=== PATIENT | male | born 1975 | race Caucasian/White ===

== ENCOUNTER 2017-02-23 12:33 | Emergency (ER) | payer MEDICAID ==
--- NOTE | 2017-02-23 13:16 | Emergency Department Record ---
History of Present Illness - General Chief complaint: Flank Pain Stated complaint: POSS KIDNEY STONE Time Seen by Provider: 02/23/17 13:12 Source: Patient Mode of Arrival: Ambulatory Limitations: No limitations - History of Present Illness Initial comments: The patient is here due to R flank pain for 3 hours that is radiating to the R groin. He has mild nausea but no vomiting. The patient has a long hx of kidney stones and it feels exactly like another one. He has always been able to pass his stones in the past with no surgical intervention. MD Complaint: Other Onset/Timin -: Hour(s) Location: Right flank Radiation: RLQ Severity: Moderate Severity scale (1-10): 10 Quality: Sharp, Stabbing Consistency: Constant Improves with: None Worsens with: None Reports: Urinary retention - Related Data Previous Rx's Medication Instructions Recorded Hydrocodone/Acetaminophen [[place] 1 - 2 each PO .EVERY 4-6 HRS PRN 02/23/17 5-325 Tablet] #20 tablet Ibuprofen [Motrin] 800 mg PO TID PRN #20 tab 02/23/17 Allergies Allergy/AdvReac Type Severity Reaction Status Date / Time No Known Drug Allergies Allergy Verified 02/23/17 13:00 Travel Screening - Travel/Exposure Within Last 30 Days Have you traveled within the last 30 days?: No - Travel/Exposure Within Last Year Have you traveled outside the [place] in the last year?: No - Additonal Travel Details Have you been exposed to anyone with a communicable illness?: No - Travel Symptoms Symptom Screening: None Review of Systems Constitutional: Denies: Chills, Fever Eyes: Denies: Eye discharge ENT: Denies: Congestion Respiratory: Denies: Cough, Dyspnea Past Medical History - SOCIAL HISTORY Smoking Status: Former smoker Alcohol Use: Occasional Drug Use: None - RESPIRATORY Hx Respiratory Disorders: No - CARDIOVASCULAR Hx Cardio Disorders: No - NEURO Hx Neuro Disorders: No - GI Hx GI Disorders: No - Hx Genitourinary Disorders: No - ENDOCRINE Hx Endocrine Disorders: No - MUSCULOSKELETAL Hx Musculoskeletal Disorders: No - PSYCH Hx Psych Problems: No - HEMATOLOGY/ONCOLOGY Hx Hematology/Oncology Disorders: No Family Medical History Any Significant Family History?: No Physical Exam - General General Appearance: Alert, Oriented x3, Cooperative, No acute distress - Head Head exam: Atraumatic, Normocephalic, Normal inspection - Eye Eye exam: Normal appearance, PERRL - Neck Neck exam: Normal inspection, Full ROM. negative: Tenderness - Respiratory Respiratory exam: Normal lung sounds bilaterally. negative: Respiratory distress - Cardiovascular Cardiovascular Exam: Regular rate, Normal rhythm, Normal heart sounds - GI/Abdominal GI/Abdominal exam: Soft, Normal bowel sounds. negative: Distended, Rebound, Rigid, Tenderness - Extremities Extremities exam: Normal inspection, Full ROM, Normal capillary refill. negative: Tenderness - Neurological Neurological exam: Alert, Normal gait. negative: Abnormal gait, Motor sensory deficit - Psychiatric Psychiatric exam: negative: Anxious, Depressed Course Vital Signs 02/23/17 13:01 Temperature 98.1 F Pulse Rate 51 L Respiratory 20 Rate Blood Pressure 134/92 Pulse Ox 99 - Reevaluation(s) Reevaluation #1: The patient is doing much better at this time. His pain is much improved. 02/23/17 14:05 Reevaluation #2: The patient is doing much better at this time. His pain has resolved and he is ready for home. I did refer him to Dr. Lofton for next month. The patient understands the need to return to the ER for any problems. 02/23/17 15:54 Medical Decision Making - Data Complexity MDM Data: Labs Ordered and/or Reviewed, X-Ray Ordered and/or Reviewed - Lab Data Result diagrams: 02/23/17 13:20 02/23/17 13:20 - Radiology Data Radiology results: Report reviewed (CT: Mild R hydro due to a 1-2 mm UVJ stone.) Disposition Disposition: Discharge Clinical Impression: Ureteral stone with hydronephrosis Disposition: Home, Self-Care Condition: (1) Good Instructions: Ureteral Stones (ED) Additional Instructions: Please drink plenty of fluids and take the Motrin and [place] for pain. Please see Dr. Lofton next month in the [facility]. Return to the ER for any increased pain, fever, or vomiting. Prescriptions: Hydrocodone/Acetaminophen [[place] 5-325 Tablet] 1 - 2 each PO .EVERY 4-6 HRS PRN #20 tablet PRN Reason: Pain Ibuprofen [Motrin] 800 mg PO TID PRN #20 tab PRN Reason: Pain Referrals: [facility] [Provider Group] Forms: Patient Portal Access Time of Disposition: 15:56 Quality - Quality Measures Quality Measures: N/A - Blood Pressure Screening View Details: Yes Blood Pressure Classification: Hypertensive Reading Systolic Measurement: 134 Diastolic Measurement: 92 Screening for High Blood Pressure: < Pre-Hypertensive BP, F/U Documented > [ G8950] Pre-Hypertensive Follow-up Interventions: Follow-up with rescreen every year.
[2017-02-23] MEDS ORDERED: 0.9 % SODIUM CHLORIDE 1,000 ML BAG IV ONE (13:18)
[2017-02-23] MEDS ORDERED: ONDANSETRON HCL IV 4 MG/2 ML VIAL IV ONE (13:18)
[2017-02-23] MEDS ORDERED: HYDROMORPHONE HCL 1 MG/ML CPJ IVP ONE (13:18)
[2017-02-23 13:33] LABS: HEMATOCRIT 45.9 % (42.0-52.0); HEMOGLOBIN 15.8 gm/dl (14.0-18.0); MEAN CELL VOLUME 82.9 fl (81-97); MEAN CORPUSCULAR HEMOGLOBIN 28.5 pg (27-33); MEAN CORPUSCULAR HGB CONC 34.4 g/dl (32-36); PLATELET COUNT 294 K/uL (130-400); RED BLOOD COUNT 5.54 M/uL (4.40-5.70); RED CELL DISTRIBUTION WIDTH 13.4 % (11.5-14.5); WHITE BLOOD COUNT W/O DIFF 10.2 K/uL (4.2-12.2)
[2017-02-23 13:46] LABS: ANION GAP 11.1 (7-16); BLOOD UREA NITROGEN 16 mg/dL (9-20); CARBON DIOXIDE 26.9 mmol/L (22-30); CREATININE 1.3 mg/dL (0.66-1.25); EST GLOMERULAR FILTRATION RATE > 60 ml/min; GLUCOSE,RANDOM 132 mg/dL (70-110)
[2017-02-23] MEDS ORDERED: KETOROLAC 30 MG/ML VIAL IVP ONE (15:15)
[2017-02-23 15:31] LABS: URINE APPEARANCE CLEAR; URINE BILIRUBIN NEGATIVE (NEGATIVE); URINE BLOOD SMALL (NEGATIVE); URINE COLOR YELLOW; URINE GLUCOSE (UA) NEGATIVE (NEGATIVE); URINE KETONE NEGATIVE (NEGATIVE); URINE LEUKOCYTE ESTERASE NEGATIVE (NEGATIVE); URINE NITRITE NEGATIVE (NEGATIVE); URINE PROTEIN NEGATIVE (NEGATIVE); URINE UROBILINOGEN 0.2 E.U./dL (0.20 - 1.00)
[2017-02-23 15:42] LABS: URINE BACTERIA FEW; URINE EPITHELIAL CELLS 0 - 2 (FEW); URINE WBC 0 - 2 (0-2/hpf)
--- NOTE | 2017-02-24 08:46 | CT SCAN REPORT ---
EXAM: CT OF THE ABDOMEN AND PELVIS HISTORY: RIGHT LOWER PAIN. TECHNIQUE: CT of the abdomen and pelvis was performed without oral or IV contrast. This limits evaluation of bowel and solid visceral organs. Comparison: Prior CT exam from 01/22/14. FINDINGS: Limited evaluation of the lung bases is unremarkable. The osseous structures are grossly intact. Small hiatal hernia suggested. Limited evaluation of the liver, spleen, adrenal glands, and pancreas is unremarkable. The gallbladder is present. Multiple nonobstructing renal calculi bilaterally. Normal appendix. There is also mild right sided hydronephrosis and hydroureter secondary to a 1-2 mm right UVJ calculus. No gross evidence for bowel obstruction. No free air or free fluid. The urinary bladder is incompletely distended. Occasional sigmoid diverticula. No CT evidence for diverticulitis. Fat containing inguinal hernias bilaterally. Enlargement of the prostate. Correlate with PSA levels. IMPRESSION: 1. MILD RIGHT SIDED HYDRONEPHROSIS AND HYDROURETER SECONDARY TO A 1-2 MM RIGHT UVJ CALCULUS. MULTIPLE OTHER NONOBSTRUCTING RENAL CALCULI BILATERALLY. 2. MULTIPLE OTHER NONEMERGENT FINDINGS, ABOVE. JOB NUMBER: [id number] MTDD
== END 2017-02-23 16:05 | disposition home or self-care (01) ==
LOC: ER 12:33
DX: N13.2 Hydronephrosis with renal and ureteral calculous obstruction (principal); R10.31 Right lower quadrant pain; R11.0 Nausea; Z87.442 Personal history of urinary calculi
CPT/HCPCS: 99284 ×2; 96374; 96375; 96361; 80048; 81001; 85027; 74176; J1885; J2405; J1170; J7030

== ENCOUNTER 2017-07-04 13:12 | Emergency (ER) | payer MEDICAID ==
[2017-07-04] MEDS ORDERED: SODIUM CHLORIDE 0.9% 500 ML IV ONE (13:30)
[2017-07-04] MEDS ORDERED: ONDANSETRON HCL IV 4 MG/2 ML VIAL IV ONE (13:30)
--- NOTE | 2017-07-04 13:32 | Emergency Department Record ---
History of Present Illness - General Chief Complaint: Abdominal Pain Stated Complaint: KIDNEY STONES,LRQ ABDOMINAL PAIN Time Seen by Provider: 07/04/17 13:22 Source: Patient Mode of Arrival: Ambulatory Limitations: No limitations - History of Present Illness Initial Comments: The patient is here due to the acute onset of sharp stabbing RLQ AP about 3 hours ago. He did have an episode of nausea and vomiting. The pain has been getting progressively worse since the onset. The patient has a hx of ureter stones and the pain does feel the same. He denies any recent illnesses. MD Complaint: Flank pain Onset/Timin -: Hour(s) Location: RLQ Radiation: None Quality: Aching, Cramping Consistency: Intermittent Improves With: Nothing Worsens With: Nothing Associated Symptoms: Dysuria, Nausea, Vomiting - Related Data Previous Rx's Medication Instructions Recorded Hydrocodone/Acetaminophen [[place] 1 - 2 each PO .EVERY 4-6 HRS PRN 07/04/17 5-325 Tablet] #20 tablet Ibuprofen [Motrin] 800 mg PO TID PRN #20 tab 07/04/17 Allergies Allergy/AdvReac Type Severity Reaction Status Date / Time No Known Drug Allergies Allergy Verified 02/23/17 13:00 Travel Screening - Travel/Exposure Within Last 30 Days Have you traveled within the last 30 days?: No - Travel/Exposure Within Last Year Have you traveled outside the [place] in the last year?: No - Additonal Travel Details Have you been exposed to anyone with a communicable illness?: No - Travel Symptoms Symptom Screening: None Review of Systems Constitutional: Denies: Chills, Fever Eyes: Denies: Eye discharge ENT: Denies: Congestion Respiratory: Denies: Cough, Dyspnea Past Medical History - SOCIAL HISTORY Smoking Status: Former smoker Alcohol Use: Occasional Drug Use: None - RESPIRATORY Hx Respiratory Disorders: No - CARDIOVASCULAR Hx Cardio Disorders: No - NEURO Hx Neuro Disorders: No - GI Hx GI Disorders: No - Hx Genitourinary Disorders: No - ENDOCRINE Hx Endocrine Disorders: No - MUSCULOSKELETAL Hx Musculoskeletal Disorders: No - PSYCH Hx Psych Problems: No - HEMATOLOGY/ONCOLOGY Hx Hematology/Oncology Disorders: No Family Medical History Any Significant Family History?: No Physical Exam - General General Appearance: Alert, Oriented x3, Cooperative, No acute distress - Head Head exam: Atraumatic, Normocephalic, Normal inspection - Eye Eye exam: Normal appearance, PERRL - Neck Neck exam: Normal inspection, Full ROM. negative: Tenderness - Respiratory Respiratory exam: Normal lung sounds bilaterally. negative: Respiratory distress - Cardiovascular Cardiovascular Exam: Regular rate, Normal rhythm, Normal heart sounds - GI/Abdominal GI/Abdominal exam: Soft, Normal bowel sounds. negative: Tenderness - Extremities Extremities exam: Normal inspection, Full ROM, Normal capillary refill. negative: Tenderness - Neurological Neurological exam: Alert. negative: Motor sensory deficit Course Vital Signs 07/04/17 13:16 Temperature 98.2 F Pulse Rate 84 Respiratory 16 Rate Blood Pressure 150/91 Pulse Ox 100 - Reevaluation(s) Reevaluation #1: The patient is doing very well at this time. His pain has pretty much resolved. There is no nausea, vomiting, or discomfort at this time. 07/04/17 15:03 Reevaluation #2: The patient is doing very well at this time. His pain has resolved and his urine has also cleared up. We did get him an appointment with Dr. Palm in 2 weeks. He is to take the pain medicines as directed and return to the ER if worse. 07/04/17 15:37 Medical Decision Making - Data Complexity MDM Data: X-Ray Ordered and/or Reviewed - Lab Data Result diagrams: 07/04/17 13:36 07/04/17 13:36 - Radiology Data Radiology results: Report reviewed (CT: 3 mm partially obstructing calculus distal third R ureter with mild hydro.) Disposition Disposition: Discharge Clinical Impression: Ureteral calculus, right Disposition: Home, Self-Care Condition: (2) Stable Instructions: Renal Colic (ED) Additional Instructions: Please drink plenty of fluids. Take the Motrin and or [place] for pain. Please see Dr. Lofton as planned on the . Return to the ER for any increased pain, fever, or vomiting. Prescriptions: Hydrocodone/Acetaminophen [[place] 5-325 Tablet] 1 - 2 each PO .EVERY 4-6 HRS PRN #20 tablet PRN Reason: Pain Ibuprofen [Motrin] 800 mg PO TID PRN #20 tab PRN Reason: Pain Referrals: [facility] [Provider Group] Forms: Patient Portal Access Time of Disposition: 15:36 Quality - Quality Measures Quality Measures: N/A - Blood Pressure Screening View Details: Yes Does Patient Have Any of the Following: No Blood Pressure Classification: Pre-Hypertensive BP Reading Systolic Measurement: 133 Diastolic Measurement: 81 Screening for High Blood Pressure: < Pre-Hypertensive BP, F/U Documented > [ G8950] Pre-Hypertensive Follow-up Interventions: Referral to alternative/primary care provider.
[2017-07-04] MEDS ORDERED: MORPHINE SULFATE 5 MG/ML PFS IVP ONE (13:33)
[2017-07-04 13:48] LABS: HEMATOCRIT 46.1 % (42.0-52.0); HEMOGLOBIN 15.7 gm/dl (14.0-18.0); MEAN CELL VOLUME 83.8 fl (81-97); MEAN CORPUSCULAR HEMOGLOBIN 28.5 pg (27-33); MEAN CORPUSCULAR HGB CONC 34.1 g/dl (32-36); MEAN PLATELET VOLUME 8.9 fl (7.4-10.4); PLATELET COUNT 311 K/uL (130-400); RED CELL DISTRIBUTION WIDTH 13.7 % (11.5-14.5); WHITE BLOOD COUNT W/O DIFF 9.1 K/uL (4.2-12.2)
[2017-07-04 14:41] LABS: URINE APPEARANCE CLOUDY; URINE BILIRUBIN NEGATIVE (NEGATIVE); URINE BLOOD LARGE (NEGATIVE); URINE COLOR BROWN; URINE GLUCOSE (UA) NEGATIVE (NEGATIVE); URINE KETONE TRACE (NEGATIVE); URINE LEUKOCYTE ESTERASE NEGATIVE (NEGATIVE); URINE NITRITE NEGATIVE (NEGATIVE); URINE UROBILINOGEN 0.2 E.U./dL (0.20 - 1.00)
[2017-07-04 14:55] LABS: URINE EPITHELIAL CELLS 0 - 2 (FEW); URINE WBC 0 - 2 (0-2/hpf)
[2017-07-04 14:56] LABS: URINE AMORPHOUS SEDIMENT 1+; URINE BACTERIA NONE SEEN
[2017-07-04 15:26] LABS: BLOOD UREA NITROGEN 18 mg/dL (6-20); CREATININE 1.1 mg/dL (0.7-1.2); EST GLOMERULAR FILTRATION RATE > 60 mL/min
[2017-07-04 15:29] LABS: GLUCOSE,RANDOM 145 mg/dL (74-109)
--- NOTE | 2017-07-05 07:50 | CT SCAN REPORT ---
EXAM: ABDOMEN AND PELVIS CT WITHOUT CONTRAST HISTORY: ACUTE RIGHT LOWER QUADRANT FLANK PAIN, DIFFICULTY URINATING. TECHNIQUE: Contiguous axial images from the lung bases to the symphysis pubic were obtained without IV contrast. Comparison: Abdomen and pelvis CT 02/23/17. FINDINGS: The lung bases are clear. The liver and spleen are unremarkable. Mild right hydroureteronephrosis with partially obstructing calculus in the distal third of the right ureter measuring 3 mm. Nonobstructing 2 mm calculus mid right kidney. At least two nonobstructing 1 mm calculi lower pole right kidney. Cluster of three calculi in the lower pole of the left kidney with the largest measuring 2 mm. At least four additional left intrarenal calculi measuring up to 2 mm. The adrenals and pancreas are normal. Dependent gallstones in the gallbladder. The visualized loops of small and large bowel are of normal caliber. Normal appendix. Mild sigmoid colon with diverticulosis. No free intraperitoneal fluid or adenopathy. Small fat containing inguinal hernias. No lytic or blastic osseous lesion. IMPRESSION: 1. MILD RIGHT HYDRONEPHROSIS DUE TO PARTIALLY OBSTRUCTING 3 MM CALCULUS AT THE DISTAL THIRD OF THE RIGHT URETER. 2. ADDITIONAL NONOBSTRUCTING INTRARENAL CALCULI. 3. NORMAL APPENDIX. 4. MILD COLONIC DIVERTICULOSIS. 5. SMALL FAT CONTAINING INGUINAL HERNIAS. JOB NUMBER: [id number] [facility]
== END 2017-07-04 15:47 | disposition home or self-care (01) ==
LOC: ER 13:12
DX: N13.2 Hydronephrosis with renal and ureteral calculous obstruction (principal); R10.31 Right lower quadrant pain; R11.2 Nausea with vomiting, unspecified; R30.0 Dysuria
CPT/HCPCS: 99284 ×2; 96374; 96375; 80048; 81001; 85027; 74176; J2405; J2270